=== PATIENT | male | born 1945 | race Caucasian/White ===

== ENCOUNTER 2019-10-22 11:31 | Emergency (ER) | payer MEDICARE, BC ==
[2019-10-22] MEDS ORDERED: Ondansetron INJ* 2 MG/ML VIAL IV ONE (11:58)
[2019-10-22] MEDS ORDERED: NS 0.9% 1000 ML** 2,000 ML IV ONE (11:58)
[2019-10-22 12:19] LABS: Hematocrit 41 % (42-52); Hemoglobin 14.1 g/dL (14.0-18.0); Mean Corpuscular HGB Conc 35 g/dL (31-36); Mean Corpuscular Hemoglobin 32 pg (27-31); Mean Corpuscular Volume 91 fL (80-94); Mean Platelet Volume 7.6 fL (7.4-10.4); Platelet Count 251 10^3/uL (150-450); Red Blood Count 4.48 10^6 /uL (4.18-5.48); Red Cell Distribution Width 14 % (10-15); White Blood Count 30.4 10^3/uL (3.5-10.8)
--- NOTE | 2019-10-22 12:19 | ED ---
GI/ HPI - HPI Summary HPI Summary: 74-year-old male presents with nausea and vomiting for the past 2 weeks. He states that he's been able to keep food down but he is just so nauseous so does not want to eat or drink anything. Has had a couple episodes of diarrhea. Had a normal bowel movement today. No history of obstructions. no previous abdominal surgeries. States he's been having generalized aches and pains. Has had a fever. Denies any chest pain or shortness of breath. He admits occasional cough. he admits to abdominal pain. Denies any urinary symptoms. he has been very weak. He has been having difficulty ambulating due to weakness. Has no medical conditions. no recent travel. did live in [place] in 60[place]. - History of Current Complaint Chief Complaint: EDNauseaVomitDiarrh Time Seen by Provider: 10/22/19 11:42 Stated Complaint: FEVER 103F PER Pain Intensity: 0 - Allergy/Home Medications Allergies/Adverse Reactions: Allergies Allergy/AdvReac Type Severity Reaction Status Date / Time No Known Allergies Allergy Verified 10/22/19 12:19 Home Medications: Home Medications Aspirin 81 mg CHEW TAB* [Aspirin Low Dose TAB*] 81 mg PO DAILY 10/22/19 [ History Confirmed 10/22/19] PMH/Surg Hx/FS Hx/Imm Hx Endocrine/Hematology History: Denies: Hx Anticoagulant Therapy Cardiovascular History: Reports: Hx Hypertension Infectious Disease History: No Infectious Disease History: Denies: Traveled Outside the [place] in Last 30 Days - Family History Known Family History: Positive: Non-Contributory - Social History Substance Use Type: Reports: None Smoking Status (MU): Never Smoked Tobacco Review of Systems Positive: Fever Negative: Chest Pain Positive: Cough. Negative: Shortness Of Breath Positive: Abdominal Pain, Vomiting, Diarrhea, Nausea All Other Systems Reviewed And Are Negative: Yes Physical Exam Triage Information Reviewed: Yes Vital Signs On Initial Exam: Initial Vitals Temp Pulse Resp BP Pulse Ox 98.7 F 87 18 164/85 96 10/22/19 11:34 10/22/19 11:34 10/22/19 11:34 10/22/19 11:34 10/22/19 11:34 Vital Signs Reviewed: Yes Appearance: Positive: Well-Appearing Skin: Positive: Warm, Dry Head/Face: Positive: Normal Head/Face Inspection Eyes: Positive: Normal, EOMI, SIMEON, Conjunctiva Clear ENT: Positive: Pharynx normal Respiratory/Lung Sounds: Positive: Clear to Auscultation, Breath Sounds Present Cardiovascular: Positive: Normal, RRR Abdomen Description: Positive: Soft, Other: - tenderness in epigastric abd, no rebound. Negative: Guarding Bowel Sounds: Positive: Present Musculoskeletal: Positive: Normal Neurological: Positive: Normal Psychiatric: Positive: Normal Procedures - Sedation Patient Received Moderate/Deep Sedation with Procedure: No Diagnostics - Vital Signs Vital Signs Temp Pulse Resp BP Pulse Ox 10/22/19 11:34 98.7 F 87 18 164/85 96 - Laboratory Result Diagrams: 10/22/19 12:09 10/22/19 12:09 Lab Statement: Any lab studies that have been ordered have been reviewed, and results considered in the medical decision making process. - Radiology chest Radiology Interpretation Completed By: Radiologist Summary of Radiographic Findings: IMPRESSION: No acute cardiopulmonary process by radiograph. - EKG No standard instances Cardiac Rate: NL EKG Rhythm: Sinus Rhythm EKG Comparison: No Significant Change Summary of EKG Findings: sinus rhythm Re-Evaluation - Re-Evaluation First Eval Re-Evaluation Time: 13:35 Change: Unchanged Comment: still feels the same GIGU Course/Dx - Course Course Of Treatment: 74-year-old male presents with nausea and vomiting for the past 2 weeks. has had abd pain and generalized muscle aches. Has had a couple episodes of diarrhea. Has had a fever. Denies any chest pain or shortness of breath. He admits occasional cough. Has no medical conditions. On exam tenderness epigastric. no rebound. wbc 30. sodium 130. potassium 3 gave run of potassium 20meq. gave 2 liters of fluids. crp elevated. lfts slightly elevated. CT shows liver cystic structure. likely abscess with history. will give dose of zosyn. as do not have IR will have to transfer. patient accepted at [facility]. - Diagnoses Differential Diagnoses - Male: Diverticulitis, Colitis, Gastroenteritis ( Bacterial), Gastroenteritis (Viral) Provider Diagnoses: Liver abscess Discharge ED - Sign-Out/Discharge Documenting (check all that apply): Patient Departure - Discharge Plan Condition: Stable Disposition: TRANS HIGHER LVL OF CARE FAC Referrals: Rylan Hogan MD [Primary Care Provider] - - Billing Disposition and Condition Condition: STABLE Disposition: Trans Higher Lvl of Care Fac - Attestation Statements Provider Attestation: I was available for consult. This patient was seen by the SHAINA. The patient was not presented to, seen by, or examined by me. Berto Decker MD
[2019-10-22 12:35] LABS: Albumin 3.1 g/dL (3.2-5.2); Albumin/Globulin Ratio 0.9 (1-3); BUN/Creatinine Ratio 16.8 (8-20); C Reactive Protein 347.56 mg/L (<8.01); Calcium 8.8 mg/dL (8.6-10.3); EGFR African American 93.8 (>60); EGFR Non-African American 77.5 (>60); Globulin 3.3 g/dL (2-4); Total Bilirubin 1.1 mg/dL (0.2-1.0); Total Protein 6.4 g/dL (6.4-8.9)
[2019-10-22 12:43] LABS: ABS Basophils 0.1 10^3/ul (0-0.2); ABS Eosinophils 0.4 10^3/ul (0-0.6); ABS Neutrophils 26.9 10^3/ul (1.5-7.7); Eosinophil % 1.3 %; Lymphocyte % 3.3 %
[2019-10-22] MEDS ORDERED: KCL 10 MEQ/50 ML IVPREMIX* 10 MEQ/50 ML BAG IV ONE ×2 (12:52→15:21)
[2019-10-22] MEDS ORDERED: Morphine INJ* 2 MG/ML 1 ML SYRINGE (TWO MG - NEW SYRINGE VERSION) IV ONE (12:56)
[2019-10-22] MEDS ORDERED: Iohexol 300* (CONTRAST) 10 ML SDV IV ONE (13:03)
[2019-10-22 14:39] LABS: Urine Appearance Clear; Urine Bilirubin Negative (Negative); Urine Blood 1+ (Negative); Urine Color Amber; Urine Glucose Negative (Negative); Urine Ketones Negative (Negative); Urine Nitrite Negative (Negative); Urine Protein 1+(30 mg/dL) (Negative); Urine Urobilinogen Positive (Negative)
[2019-10-22 14:42] LABS: Urine Bacteria Absent (Absent); Urine Red Blood Cell Trace(0-2/hpf) (Absent); Urine Squamous Epithelial Cell Present (Absent); Urine White Blood Cell 1+(6-10/hpf) (Absent)
[2019-10-22] MEDS ORDERED: Piperacillin/Tazobac ADVAN(*) 3.375 GM in NS 0.9% 100 ML* 100 ML IVPB ONE (14:48)
[2019-10-22] MEDS ORDERED: Morphine 4 MG/ML VIAL (1 ml) 4 MG/ML VIAL IV ONE ×2 (15:03→17:27)
[2019-10-22 18:40] VITALS: BP 155/77
--- NOTE | 2019-10-24 10:16 | ED ---
Imaging and Labs Follow Up Follow Up Type: Labs/Cultures Labs/Culture Result: Anaerobic bottle x 1 growing gram positive cocci. Patient Communication/Plan: Pt. was transferred to [facility] for likely liver abscess. Pending final culture. Provider Diagnoses: Liver abscess
--- NOTE | 2019-10-26 06:47 | ED ---
Imaging and Labs Follow Up Follow Up Type: Labs/Cultures Labs/Culture Result: Positive for marvimonas micra Patient Communication/Plan: Pt transferred to [facility] Patient Communication/Plan: Faxed blood culture report to the floor where patient is placed Provider Diagnoses: Liver abscess
== END 2019-10-22 18:38 | disposition short-term general hospital (02) ==
LOC: ED 11:31
DX: K75.0 Abscess of liver (principal); Z79.82 Long term (current) use of aspirin; K57.90 Diverticulosis of intestine, part unspecified, without perforation or abscess without bleeding
CPT/HCPCS: 36415; 71045; 74177; 80053; 81003; 81015; 82150; 83605; 83690; 83735; 83880; 85025; 86140; 87040; 87076; 87086; 87205; 93005; 96361; 96365; 96375; 96376; 99285; J2270; J2405; J2543; J3480; Q9967